=== PATIENT | female | born 1955 | race Caucasian/White ===

== ENCOUNTER 2023-06-13 16:25 | Inpatient (IN) | payer MEDICARE, SELFPAY ==
--- NOTE | ~2023-06-13 | CT_ITS ---
EXAMINATION: CT ANGIOGRAM OF THE CHEST WITH AND WITHOUT CONTRAST (CT PULMONARY ANGIOGRAM FOR PE) CLINICAL INFORMATION: Reason for Exam Covid +, hypoxic COMPARISON: None available. TECHNIQUE: Prior to contrast administration, noncontrast localization images were obtained. Subsequently, multidetector volumetric imaging was performed from the thoracic inlet to below the diaphragms following the administration of 80 mL Omnipaque 350 intravenous contrast. No contrast reaction reported Sagittal, coronal, and MIP oblique sagittal reformatted images were obtained on the CT workstation, uploaded to PACS, and reviewed. This CT examination was performed using dose optimization techniques as appropriate, variously including the following: *Automated exposure control *Adjustment of mA and/or kV according to patient size (this includes techniques or standardized protocols for targeted exams where dose is matched to indication/reason for exam; i.e. extremities or head) *Use of iterative reconstruction technique Total exam dose-length product 276 mGy-cm FINDINGS: QUALITY OF STUDY/CONTRAST BOLUS: Satisfactory. PULMONARY ARTERIES: No pulmonary emboli. THORACIC AORTA: No aneurysm. LUNG: There is mild hyperinflated of upper lobes. There is mild peribronchial thickening and patchy opacity right middle lobe anterobasal segment right lower lobe suggestive of infiltrate/atelectasis PLEURA: No pleural effusion or pneumothorax. MEDIASTINUM: The thyroid lobes are symmetrical and normal. The heart size is normal. Small shotty lymph nodes are seen in the aortic window and pretracheal space. There is no pericardial effusion. No evidence of septal bowing or right heart strain. CORONARY ARTERY CALCIFICATION: Minimal coronary artery calcifications are noted. CHEST WALL/AXILLA: No axillary or internal mammary lymphadenopathy. OSSEOUS STRUCTURES: No acute or suspicious osseous abnormality. UPPER ABDOMEN: There is a geographic hypodense areas seen in the right and left hepatic lobe likely fatty infiltration. Rest of the liver, spleen, visualized pancreas and adrenal glands are unremarkable. No reflux of contrast into the hepatic veins to suggest elevated right heart pressures. CT/CT angio chest PE protocol IMPRESSION: 1. No evidence of PE. 2. No evidence of aortic dissection. 3. Mild peribronchial thickening and patchy opacity right middle lobe and right lower lobe suggestive of infiltrate/atelectasis. 4. Geographic hypodense areas in the right and left hepatic lobe likely fatty infiltration. VTE: negative.
--- NOTE | ~2023-06-13 | XR_ITS ---
EXAMINATION: XR CHEST CLINICAL INFORMATION: SOB. COMPARISON: None available. TECHNIQUE: Frontal view of the chest was obtained. FINDINGS: The lungs are well-expanded and clear of acute process. There is a small 7 mm nodule left lung base question nipple shadow. Rest lungs are clear. The heart size and pulmonary vascularity is normal. No gross bony abnormality seen. XR/XR chest 1V IMPRESSION: No acute cardiopulmonary process seen. There is a 7 mm nodule left lung base question nipple shadow.
--- NOTE | 2023-06-13 16:37 | ED.GENADULT ---
HPI - General Adult General Chief complaint: General Medical Stated complaint: difficulty breathing, sent by PCP Time Seen by Provider: 06/13/23 16:47 Related Data Home Medications Medication Instructions Recorded Confirmed atorvastatin 10 mg tablet 10 mg PO BEDTIME 06/13/23 06/13/23 lorazepam 0.5 mg tablet 0.5 mg PO BID PRN anxiety 06/13/23 06/13/23 trazodone 50 mg tablet 50 mg PO BEDTIME 06/13/23 06/13/23 Previous Rx's Medication Instructions Recorded albuterol sulfate 90 mcg/actuation 2 puff inhalation Q4-6H PRN 06/15/23 aerosol inhaler shortness of breath or wheezing #6.7 grams benzonatate 100 mg capsule 100 mg PO TID PRN Cough #30 caps 06/15/23 dexamethasone 6 mg tablet 6 mg PO DAILY #7 tabs 06/15/23 Allergies Allergy/AdvReac Type Severity Reaction Status Date / Time Penicillins [PCN] Allergy Unknown Verified 06/13/23 16:44 [facility] Past Medical History Medical History COPD (chronic obstructive pulmonary disease) Social History Social History Household Members: None Housing: Condominium Do you presently have visiting nurse or other home services: No Patient Tobacco Use Status: Never used Tobacco Substance Use Type: Marijuana service: No Physical Exam ED Vital Signs: Vital Signs - 24 hr 06/13/23 16:38 Temperature 101.5 F H Pulse Rate 114 H Respiratory Rate 22 H Blood Pressure 130/67 Pulse Oximetry 85 L Oxygen Delivery Method Room Air BMI result Body Mass Index 37.7 Course Course Course Narrative: This is an RME: Additional HPI, ROS, PE not included below will be deferred to primary provider. This is a [id number]-female, with a hx of fibromyalgia, COPD, presenting to the ER wt complaints of body aches, weakness, decreased appetite, shortness of breath x 2 weeks. Pt was seen by PCP today and was told to come into the ER for further evaluation as her oxygen saturation was low. Lungs diminished in all lung mccann. Pt febrile at 101.4, tachycardic 112bpm, oxygen saturation 84% on room air, placed on 2L of oxygen nasal cannula, now saturating at 90% on 2L nasal cannula. No hx of CHF. Informed charge nurse to move pt back to main ER. Plan: Labs, blood cultures, lactic, cxr, tylenol PO >pt seen by Dr. Cole, see other note Medications Administered Discontinued Medications Generic Name Dose Route Start Last Admin Trade Name Freq PRN Reason Stop Dose Admin Acetaminophen 975 mg 06/13/23 16:47 06/13/23 17:23 Acetaminophen 325 Mg Tablet PO 06/13/23 16:48 975 mg ONCE ONE Administration Acetaminophen 975 mg 06/13/23 17:08 06/13/23 17:24 Acetaminophen 325 Mg Tablet PO 06/13/23 17:09 Not Given ONCE ONE Acetaminophen 650 mg 06/13/23 21:14 06/15/23 09:13 Acetaminophen 325 Mg Tablet PO 650 mg Q6H PRN Administration Pain, Mild (Pain Scale 1-3) Albuterol/Ipratropium 3 ml 06/14/23 08:00 06/15/23 11:33 Albuterol/Iprat 2.5/0.5mg 3 Ml Ampul.Neb INHALE Not Given RQ4H WHILE AWAKE MARISSA Atorvastatin Calcium 10 mg 06/14/23 21:00 06/14/23 21:18 Atorvastatin Calcium 10 Mg Tablet PO 10 mg BEDTIME MARISSA Administration Atorvastatin Calcium 10 mg 06/13/23 22:57 06/13/23 23:33 Atorvastatin Calcium 10 Mg Tablet PO 06/13/23 22:58 10 mg ONCE ONE Administration Dexamethasone Sodium Phosphate 6 mg 06/13/23 16:59 06/13/23 17:23 Dexamethasone Sod Phosphate 4 Mg/Ml Vial IVPUSH 06/13/23 17:00 6 mg ONCE ONE Administration Dexamethasone Sodium Phosphate 6 mg 06/14/23 09:00 06/15/23 09:14 Dexamethasone Sod Phosphate 4 Mg/Ml Vial IVPUSH 6 mg DAILY MARISSA Administration Enoxaparin Sodium 40 mg 06/13/23 22:00 06/14/23 21:18 Enoxaparin Sodium 40 Mg/0.4 Ml Syringe SUBCUT 40 mg Q24H MARISSA Administration Levofloxacin 500 mg in 100 mls @ 100 mls/hr 06/13/23 17:00 06/13/23 18:31 Levaquin IV 06/13/23 17:59 Infused ONCE ONE Infusion Sodium Chloride 1,500 mls @ 999 mls/hr 06/13/23 17:09 06/13/23 19:17 Ns IVCONT 06/13/23 18:39 Infused .Q1H31M ONE Infusion Iohexol 100 ml 06/13/23 18:34 06/13/23 18:34 Iohexol 350 Mg/Ml 100 Ml Infus..Btl IV 06/13/23 18:35 65 ml ONCE ONE Administration Lorazepam 0.5 mg 06/13/23 21:14 06/14/23 23:31 Lorazepam 0.5 Mg Tablet PO 0.5 mg BID PRN Administration anxiety Sodium Chloride 3 ml 06/14/23 00:00 06/15/23 09:14 0.9 % Sodium Chloride Flush 3 Ml Syringe IVFLUSH 3 ml QSHIFT [facility] Administration Trazodone HCl 50 mg 06/14/23 21:00 06/14/23 21:27 Trazodone Hcl 50 Mg Tablet PO Not Given BEDTIME [facility] Medical Decision Making Lab Data 06/15/23 06:20 06/15/23 06:20 Labs: Lab Results 06/13/23 06/13/23 Range/Units 17:17 17:20 WBC 11.9 H (4.8-10.8) X10*3/uL RBC 5.26 (4.20-5.50) X10*6/uL Hgb 15.3 (12.0-16.0) g/dl Hct 45.4 (37.0-47.0) % MCV 86.3 (80.0-98.0) fL MCH 29.1 (27.0-33.0) pg MCHC 33.7 (31.0-35.0) g/dl RDW 13.2 (11.0-16.0) % Plt Count 264 (160-400) X10*3/uL MPV 9.1 L (9.4-12.3) fL Immature Gran % (Auto) 0.7 H (0.0-0.4) % Neut % (Auto) 64.9 (45-73) % Lymph % (Auto) 15.7 L (20-40) % [place] % (Auto) 16.4 H (2-11) % Eos % (Auto) 2.0 (0-4) % Baso % (Auto) 0.3 (0-2) % Lymph # (Auto) 1.9 (1.2-4.9) X10*3/uL [place] # (Auto) 2.0 H (0.1-1.2) X10*3/uL Eos # (Auto) 0.2 (0.0-0.4) X10*3/uL Baso # (Auto) 0.0 (0.0-0.2) X10*3/uL Abs Immat Gran (auto) 0.08 H (0.00-0.03) X10*3/uL Absolute Neuts (auto) 7.7 (2.0-8.3) x10*3/uL Absolute Nucleated RBC 0.000 (0.0-0.012) X10*3/uL Nucleated RBC % (auto) 0.0 (0.0-0.2) /100WBC Smear Tech's Comments VERIFIED VBG pH 7.39 (7.32-7.43) VBG pCO2 38 mmHg VBG pO2 49 mmHg VBG HCO3 23 (22-26) mmol/L VBG O2 Saturation 80.0 % VBG Base Excess -0.9 mmol/L Sodium 138 (135-145) mmol/L Potassium 3.9 (3.3-5.1) mmol/L Chloride 102 (96-108) mmol/L Carbon Dioxide 22 (22-29) mmol/L Anion Gap 18 (12-20) BUN 12 (9-16) mg/dL Creatinine 1.23 (0.5-1.4) mg/dL Estim Creat Clear Calc 46.6 Estimated GFR 43 Random Glucose 119 H (60-115) mg/dL Lactic Acid 1.0 (0.5-2.0) mmol/L Calcium 9.5 (8.4-10.2) mg/dL Ferritin 492 H (10-250) ng/mL Total Bilirubin 0.4 (0.0-1.0) mg/dL Direct Bilirubin 0.2 (0.0-0.5) mg/dL AST 33 H (5-31) U/L ALT 22 (0-31) U/L Alkaline Phosphatase 64 (39-117) U/L Lactate Dehydrogenase 202 (122-220) U/L C-Reactive Protein 15.60 H (< or = 0.50) mg/dL B-Natriuretic Peptide 70 (<100) pg/mL Total Protein 7.4 (6.5-8.0) g/dL Albumin 4.1 (3.5-5.0) g/dL Influenza Type A (PCR) NEGATIVE (Negative) Influenza Type B (PCR) NEGATIVE (Negative) RSV RNA Qual (PCR) NEGATIVE (Negative) SARS-CoV-2 RNA (RT-PCR) POSITIVE A (Negative) Discharge Plan Discharge Clinical Impression: COVID Patient Disposition: Admitted As Inpatient Interventions: Admission Worksheet (ED) Last Done: 06/14/23 09:59 Discharge Date/Time: 06/14/23 10:00
[2023-06-13 16:38] VITALS: BP 130/67; PULSE 114; RESP 22; TEMP 38.6; O2SAT 85; BMI 37.7
--- NOTE | 2023-06-13 17:00 | ED_ITS ---
HPI - General Adult General Chief complaint: General Medical Stated complaint: difficulty breathing, sent by PCP Time Seen by Provider: 06/13/23 16:47 Source: patient and family Mode of arrival: ambulatory Limitations: no limitations History of Present Illness HPI narrative: Patient comes to the emergency room complaining of shortness of breath. Patient states that she is came in from urgent care, who advised the patient to come to the emergency room for further evaluation and treatment. Patient states that 2 weeks ago, she started having diarrhea and shortness of breath. Over last 2 weeks, patient continues having the same symptoms but the shortness of breath has gradually been getting much worse, especially with exertion. Patient denies chest pain. When patient arrived in triage, it was noted that patient's oxygen saturation was 85% on room air. Patient is not O2 dependent. Related Data Allergies Allergy/AdvReac Type Severity Reaction Status Date / Time Penicillins [PCN] Allergy Unknown Verified 06/13/23 16:44 Review of Systems 2 Review of Systems: Constitutional : No Weight loss, No Fever, No Chills, No Night Sweats, No Fatigue, No Malaise ENT/Mouth : No Hearing loss, No Ear Pain, No Nasal Congestion, No Sinus Pain, No Hoarseness, No sore throat, No Rhinorrhea, No Swallowing Difficulty Eyes: No Eye Pain, No Swelling, No Redness, No Foreign Body, No Discharge, No Vision Changes Cardiovascular : No Chest Pain, No SOB, No Dyspnea on Exertion, No Orthopnea, No Edema, No Palpitations Respiratory : Patient complaining of shortness of breath worse with exertion, cough, sputum, denies wheezing recently Gastrointestinal : No Nausea, No Vomiting, complaining of Diarrhea, No Constipation, No abdominal Pain, No Hematochezia, No Melena Genitourinary : no irregular bleeding, No Dysuria, No Urinary Frequency, No Hematuria, No Urinary Incontinence, No Urgency, No Flank Pain, No Urinary Flow Changes, No Hesitancy Musculoskeletal : No joint pain, No Myalgias, No Joint Swelling Skin : No Skin Lesions, No rash Neuro : No Weakness, No Numbness, No Paresthesias, No Loss of Consciousness, No Dizziness, No Headache Psych : No Anxiety/Panic, No Depression, No SI/HI/AH/VH, No Social Issues, Heme/Lymph: No Bruising, No Bleeding,No Lymphadenopathy Endocrine : No Polyuria, No Polydipsia, No Temperature Intolerance [facility] Past Medical History Medical History (Updated 06/13/23 @ 20:28 by Sonia Cole MD) COPD (chronic obstructive pulmonary disease) Social History Social History Smoked in Last 30 Days: No Use of substances other than those prescribed or required for medical reasons: No Advance Directives: No Advance Directives Information Provided: No Physical Exam ED Vital Signs: Vital Signs - 24 hr 06/13/23 16:38 06/13/23 17:27 06/13/23 18:15 Temperature 101.5 F H 98.9 F Pulse Rate 114 H 103 H Respiratory Rate 22 H 22 H 22 H Blood Pressure 130/67 133/70 Pulse Oximetry 85 L 93 Oxygen Delivery Method Room Air Nasal Cannula Oxygen Flow Rate 3 06/13/23 19:22 Temperature Pulse Rate 88 Respiratory Rate 20 Blood Pressure 119/60 Pulse Oximetry 91 L Oxygen Delivery Method Nasal Cannula Oxygen Flow Rate 2 BMI result Body Mass Index 37.7 Const Other: Appearance: Alert. Oriented X3. No acute distress. Eyes: Pupils equal, round and reactive to light. ENT: Pharynx normal. Neck: Normal inspection. Neck supple. No lymph nodes noted. No crepitus CVS: Normal heart rate and rhythm. Pulses normal. Normal S1 and S2 Respiratory: In tachypneic, respiratory rate approximately 30, diffuse bilateral crackles, no wheezing, good air movement Abdomen: Soft and nontender. No rigidity. No distention. Skin: Skin warm and dry. Normal skin color. Normal skin turgor. Extremities: No lower extremity edema. No Lacerations. No Rash Neuro: Oriented X 3. No motor deficit. No sensory deficit. Moving all extremities. No slurred speech. CN 2 through 12 grossly intact Psych: calm, cooperative, normal affect Course Course Course Narrative: -patient's oxygen saturation 85% on room air, tachypneic. Patient has a fever of 101.5, heart rate 114. Blood pressure stable 130/67. -all of patient's labs and imaging pending. Empirically, patient is being giving IV fluids based on ideal weight of 48 kg, patient is obese. Patient also treated with IV antibiotics given her medical comorbidities. -patient is not oxygen dependent, patient saturating 90% with 3 L. With minimal exertion such as sitting up, oxygen drops to 88% on 3 L. discussed with the patient and her that patient will be admitted once the initial workup is completed, both agree with plan. -at this time, patient is not wheezing, breathing treatment not indicated. However, given that patient is hypoxic, patient received 1 dose of 6 mg IV Decadron -patient has been symptomatic for approximately 2 weeks, at this time we will not start antiviral medications for COVID Medications Administered Discontinued Medications Generic Name Dose Route Start Last Admin Trade Name Uche PRN Reason Stop Dose Admin Acetaminophen 975 mg 06/13/23 16:47 06/13/23 17:23 Acetaminophen 325 Mg Tablet PO 06/13/23 16:48 975 mg ONCE ONE Administration Acetaminophen 975 mg 06/13/23 17:08 06/13/23 17:24 Acetaminophen 325 Mg Tablet PO 06/13/23 17:09 Not Given ONCE ONE Dexamethasone Sodium Phosphate 6 mg 06/13/23 16:59 06/13/23 17:23 Dexamethasone Sod Phosphate 4 Mg/Ml Vial IVPUSH 06/13/23 17:00 6 mg ONCE ONE Administration Levofloxacin 500 mg in 100 mls @ 100 mls/hr 06/13/23 17:00 06/13/23 18:31 Levaquin IV 06/13/23 17:59 Infused ONCE ONE Infusion Sodium Chloride 1,500 mls @ 999 mls/hr 06/13/23 17:09 06/13/23 19:17 Ns IVCONT 06/13/23 18:39 Infused .Q1H31M ONE Infusion Iohexol 100 ml 06/13/23 18:34 06/13/23 18:34 Iohexol 350 Mg/Ml 100 Ml Infus..Btl IV 06/13/23 18:35 65 ml ONCE ONE Administration Medical Decision Making Medical Decision Making [facility] Narrative: -my interpretation of chest x-ray: No pneumonia -my interpretation of CT scan for pulmonary embolism, no obvious PE -my interpretation of labs: White blood cell count 11.9, likely reactive leukocytosis, chemistry unremarkable, BNP 70 -patient remained saturating in the low 90s at 3 L of oxygen. -I discussed the patient with Dr. Fuentes, patient being admitted Differential Diagnosis Differential Diagnoses: The differential diagnosis associated with the presentation includes (COVID, pneumonia, influenza) Admission/Observation Consideration of admission/observation: Escalation of care including admission/observation considered Consult Healthcare Provider Management of the patient was discussed with: Hospitalist Lab Data [facility] Lab Attestation statement: I reviewed the patient's lab results. 06/13/23 17:17 06/13/23 17:17 Labs: Lab Results 06/13/23 06/13/23 Range/Units 17:17 17:20 WBC 11.9 H (4.8-10.8) X10*3/uL RBC 5.26 (4.20-5.50) X10*6/uL Hgb 15.3 (12.0-16.0) g/dl Hct 45.4 (37.0-47.0) % MCV 86.3 (80.0-98.0) fL MCH 29.1 (27.0-33.0) pg MCHC 33.7 (31.0-35.0) g/dl RDW 13.2 (11.0-16.0) % Plt Count 264 (160-400) X10*3/uL MPV 9.1 L (9.4-12.3) fL Immature Gran % (Auto) 0.7 H (0.0-0.4) % Neut % (Auto) 64.9 (45-73) % Lymph % (Auto) 15.7 L (20-40) % [place] % (Auto) 16.4 H (2-11) % Eos % (Auto) 2.0 (0-4) % Baso % (Auto) 0.3 (0-2) % Lymph # (Auto) 1.9 (1.2-4.9) X10*3/uL [place] # (Auto) 2.0 H (0.1-1.2) X10*3/uL Eos # (Auto) 0.2 (0.0-0.4) X10*3/uL Baso # (Auto) 0.0 (0.0-0.2) X10*3/uL Abs Immat Gran (auto) 0.08 H (0.00-0.03) X10*3/uL Absolute Neuts (auto) 7.7 (2.0-8.3) x10*3/uL Absolute Nucleated RBC 0.000 (0.0-0.012) X10*3/uL Nucleated RBC % (auto) 0.0 (0.0-0.2) /100WBC Smear Tech's Comments VERIFIED VBG pH 7.39 (7.32-7.43) VBG pCO2 38 mmHg VBG pO2 49 mmHg VBG HCO3 23 (22-26) mmol/L VBG O2 Saturation 80.0 % VBG Base Excess -0.9 mmol/L Sodium 138 (135-145) mmol/L Potassium 3.9 (3.3-5.1) mmol/L Chloride 102 (96-108) mmol/L Carbon Dioxide 22 (22-29) mmol/L Anion Gap 18 (12-20) BUN 12 (9-16) mg/dL Creatinine 1.23 (0.5-1.4) mg/dL Estim Creat Clear Calc 46.6 Estimated GFR 43 Random Glucose 119 H (60-115) mg/dL Lactic Acid 1.0 (0.5-2.0) mmol/L Calcium 9.5 (8.4-10.2) mg/dL Total Bilirubin 0.4 (0.0-1.0) mg/dL Direct Bilirubin 0.2 (0.0-0.5) mg/dL AST 33 H (5-31) U/L ALT 22 (0-31) U/L Alkaline Phosphatase 64 (39-117) U/L B-Natriuretic Peptide 70 (<100) pg/mL Total Protein 7.4 (6.5-8.0) g/dL Albumin 4.1 (3.5-5.0) g/dL Influenza Type A (PCR) NEGATIVE (Negative) Influenza Type B (PCR) NEGATIVE (Negative) RSV RNA Qual (PCR) NEGATIVE (Negative) SARS-CoV-2 RNA (RT-PCR) POSITIVE A (Negative) Independent Interpretation I performed an independent interpretation of an: Plain X-Ray and CT Scan Radiology Impression Discussion of test interpretation with radiology: I have reviewed the radiologist's reading. Radiologist Impression: FINDINGS: QUALITY OF STUDY/CONTRAST BOLUS: Satisfactory. PULMONARY ARTERIES: No pulmonary emboli. THORACIC AORTA: No aneurysm. LUNG: There is mild hyperinflated of upper lobes. There is mild peribronchial thickening and patchy opacity right middle lobe anterobasal segment right lower lobe suggestive of infiltrate/atelectasis PLEURA: No pleural effusion or pneumothorax. MEDIASTINUM: The thyroid lobes are symmetrical and normal. The heart size is normal. Small shotty lymph nodes are seen in the aortic window and pretracheal space. There is no pericardial effusion. No evidence of septal bowing or right heart strain. CORONARY ARTERY CALCIFICATION: Minimal coronary artery calcifications are noted. CHEST WALL/AXILLA: No axillary or internal mammary lymphadenopathy. OSSEOUS STRUCTURES: No acute or suspicious osseous abnormality. UPPER ABDOMEN: There is a geographic hypodense areas seen in the right and left hepatic lobe likely fatty infiltration. Rest of the liver, spleen, visualized pancreas and adrenal glands are unremarkable. No reflux of contrast into the hepatic veins to suggest elevated right heart pressures. CT/CT angio chest PE protocol IMPRESSION: 1. No evidence of PE. 2. No evidence of aortic dissection. 3. Mild peribronchial thickening and patchy opacity right middle lobe and right lower lobe suggestive of infiltrate/atelectasis. 4. Geographic hypodense areas in the right and left hepatic lobe likely fatty infiltration. VTE: negative. FINDINGS: The lungs are well-expanded and clear of acute process. There is a small 7 mm nodule left lung base question nipple shadow. Rest lungs are clear. The heart size and pulmonary vascularity is normal. No gross bony abnormality seen. XR/XR chest 1V IMPRESSION: No acute cardiopulmonary process seen. There is a 7 mm nodule left lung base question nipple shadow. Independent Historian Clinical information obtained from an independent historian. History obtained from or confirmed by: Other (Brother) Critical Care Time Critical Care Time Critical Care Time: Yes Total Critical Care Time: 75 Attestation: I have personally provided critical care time. Time includes review of lab data, radiology results, discussion with consultants, and monitoring for potential decompensation. Intervention performed as documented. Discharge Plan Discharge Clinical Impression: COVID Patient Disposition: Admitted As Inpatient
[2023-06-13] MEDS: levoFLOXacin/D5W 500 MG/100 ML PIGGYBACK 100 MG IV (17:23)
[2023-06-13] MEDS: dexAMETHasone sod phosphate 4 MG/ML VIAL 6 MG IVPUSH (17:23)
[2023-06-13] MEDS: Acetaminophen 325 MG TABLET 975 MG PO (17:23)
[2023-06-13 17:26] LABS: Venous Blood Gas Refer to POC result
[2023-06-13 17:27] VITALS: BP 133/70; PULSE 103; RESP 22; TEMP 37.2; O2SAT 93
[2023-06-13 17:27] LABS: VBG Base Excess -0.9 mmol/L; VBG HCO3 23 mmol/L (22-26); VBG pCO2 38 mmHg; VBG pH 7.39 (7.32-7.43); VBG pO2 49 mmHg
[2023-06-13 17:27] LABS: Basophils Percent Auto 0.3 % (0-2); Eosinophils Absolute Auto 0.2 X10*3/uL (0.0-0.4); Hematocrit 45.4 % (37.0-47.0); Hemoglobin 15.3 g/dl (12.0-16.0); Imm Gran Abs Auto 0.08 X10*3/uL (0.00-0.03); Imm Gran Pct Auto 0.7 % (0.0-0.4); Lymphocytes Absolute Auto 1.9 X10*3/uL (1.2-4.9); Lymphocytes Percent Auto 15.7 % (20-40); MANUAL DIFF FLAG SCAN; Mean Corpuscular HGB Conc 33.7 g/dl (31.0-35.0); Mean Corpuscular Hemoglobin 29.1 pg (27.0-33.0); Mean Corpuscular Volume 86.3 fL (80.0-98.0); Mean Platelet Volume 9.1 fL (9.4-12.3); Monocytes Percent Auto 16.4 % (2-11); Neutrophils Absolute Auto 7.7 x10*3/uL (2.0-8.3); Neutrophils Percent Auto 64.9 % (45-73); Platelet Count 264 X10*3/uL (160-400); Red Blood Count 5.26 X10*6/uL (4.20-5.50); Red Cell Distribution Width 13.2 % (11.0-16.0); SCAN SMEAR FLAG 1; White Blood Count 11.9 X10*3/uL (4.8-10.8)
[2023-06-13] MEDS: 0.9 % Sodium Chloride 1,500 ML 999 ML IVCONT (17:40)
[2023-06-13 17:41] LABS: Alanine Aminotransferase 22 U/L (0-31); Albumin Level 4.1 g/dL (3.5-5.0); Alkaline Phosphatase 64 U/L (39-117); Anion Gap 18 (12-20); Aspartate Amino Transferase 33 U/L (5-31); Bilirubin Direct 0.2 mg/dL (0.0-0.5); Bilirubin Total 0.4 mg/dL (0.0-1.0); Blood Urea Nitrogen 12 mg/dL (9-16); Calcium 9.5 mg/dL (8.4-10.2); Carbon Dioxide 22 mmol/L (22-29); Chloride 102 mmol/L (96-108); Creatinine Clr Calc Pharmacy 46.6; Estimated Glomerular Filt Rate 43; Glucose Random 119 mg/dL (60-115); Potassium 3.9 mmol/L (3.3-5.1); Sodium 138 mmol/L (135-145); Total Protein 7.4 g/dL (6.5-8.0)
[2023-06-13 17:46] LABS: B Type Natriuretic Peptide 70 pg/mL (<100)
[2023-06-13 18:01] LABS: SLIDE REVIEW VERIFIED
[2023-06-13 18:14] LABS: Influenza A PCR NEGATIVE (Negative); Influenza B PCR NEGATIVE (Negative); Resp Syncy Virus RNA Qual PCR NEGATIVE (Negative); SARS COV2 PCR INHOUSE POSITIVE (Negative)
--- NOTE | 2023-06-13 18:14 | PC.NURSE ---
20g IV placed in LAC, medications administered per NOV. Pt is resting on stretcher, respirations even and unlabored, skin pink warm and moist. Pt repositioned in bed for comfort. No apparent distress at this time. Pt aware of plan for admission
[2023-06-13 18:15] VITALS: RESP 22
[2023-06-13] MEDS: iohexoL 350 MG/ML 100 ML INFUS..BTL IV (18:34)
[2023-06-13 19:22] VITALS: BP 119/60; PULSE 88; RESP 20; O2SAT 91
--- NOTE | 2023-06-13 20:18 | P.HPHOSP_ITS ---
History of Present Illness Date of Service: 06/13/23 Chief Complaint: SOB A 67 years old lady with PMH of COPD who presents to the hospital reporting worsening shortness of breath over the last 2 weeks with associated weakness. she states that she developed diarrhea almost 2 weeks ago that did not improve much with decrease PO intake. over the last weekend complicated with SOB and cough associated with chest tightness and occasional cough with no sputum.Denies any chest pain, abd pain, nausea, vomiting, rash or urinary symptoms. In ED found to be febrile and hypoxic. tested positive for Covid. Admitted for further eval and tretment. Review of Systems 2 Review of Systems: reporting fever, chills and weakness No chest pain, palpitation having shortness of breath and coughing No abdominal pain, nausea or vomiting No urinary symptoms No any rash or wounds PMFSH Medical History COPD (chronic obstructive pulmonary disease) Social History Smoked in Last 30 Days: No Use of substances other than those prescribed or required for medical reasons: No Advance Directives: No Advance Directives Information Provided: No Meds Allergies Allergy/AdvReac Type Severity Reaction Status Date / Time Penicillins [PCN] Allergy Unknown Verified 06/13/23 16:44 Home Medications Medication Instructions Recorded Confirmed Last Taken Type atorvastatin 10 mg tablet 10 mg PO BEDTIME 06/13/23 06/13/23 06/12/23 History lorazepam 0.5 mg tablet 0.5 mg PO BID PRN anxiety 06/13/23 06/13/23 Unknown History trazodone 50 mg tablet 50 mg PO BEDTIME 06/13/23 06/13/23 06/12/23 History Physical Exam 2 Vital Signs and Narrative: Vital Signs: Last Vital Signs Temp 98.9 F 06/13/23 17:27 Pulse 88 06/13/23 19:22 Resp 20 06/13/23 19:22 BP 119/60 06/13/23 19:22 Pulse Ox 91 L 06/13/23 19:22 O2 Del Method Nasal Cannula 06/13/23 19:22 O2 Flow Rate 2 06/13/23 19:22 BMI result Body Mass Index 37.7 Const: Other: Constitutional : Awake, interactive, not in distress Neck : Normal inspection, Supple Cardiovascular : RRR, no JVP, no lower extremity edema Respiratory : decreased ilateral air entry, no crackles, scattered expiratory wheezes Gastrointestinal: soft, lax, Normal bowel sounds, Non tender Skin : Warm, Dry Neurological : Alert & oriented x3, No focal deficit Results Labs 06/13/23 17:17 06/13/23 17:17 Labs: Laboratory Results - last 24 hr 06/13/23 06/13/23 17:17 17:20 MCV 86.3 MCH 29.1 MCHC 33.7 RDW 13.2 Plt Count 264 MPV 9.1 L Immature Gran % (Auto) 0.7 H Neut % (Auto) 64.9 Lymph % (Auto) 15.7 L [place] % (Auto) 16.4 H Eos % (Auto) 2.0 Baso % (Auto) 0.3 Lymph # (Auto) 1.9 [place] # (Auto) 2.0 H Eos # (Auto) 0.2 Baso # (Auto) 0.0 Abs Immat Gran (auto) 0.08 H Absolute Neuts (auto) 7.7 Absolute Nucleated RBC 0.000 Nucleated RBC % (auto) 0.0 Smear Tech's Comments VERIFIED VBG pH 7.39 VBG pCO2 38 VBG pO2 49 VBG HCO3 23 VBG O2 Saturation 80.0 VBG Base Excess -0.9 Anion Gap 18 Estim Creat Clear Calc 46.6 Estimated GFR 43 Random Glucose 119 H Lactic Acid 1.0 Calcium 9.5 Total Bilirubin 0.4 Direct Bilirubin 0.2 AST 33 H ALT 22 Alkaline Phosphatase 64 B-Natriuretic Peptide 70 Total Protein 7.4 Albumin 4.1 Influenza Type A (PCR) NEGATIVE Influenza Type B (PCR) NEGATIVE RSV RNA Qual (PCR) NEGATIVE SARS-CoV-2 RNA (RT-PCR) POSITIVE A Imaging Radiologist's Impressions: Impressions Chest X-Ray 06/13/23 17:09 IMPRESSION: No acute cardiopulmonary process seen. There is a 7 mm nodule left lung base question nipple shadow. Chest CTA 06/13/23 18:45 IMPRESSION: 1. No evidence of PE. 2. No evidence of aortic dissection. 3. Mild peribronchial thickening and patchy opacity right middle lobe and right lower lobe suggestive of infiltrate/atelectasis. 4. Geographic hypodense areas in the right and left hepatic lobe likely fatty infiltration. VTE: negative. Assessment and Plan (1) COVID: Status: Acute (2) Acute respiratory failure with hypoxia: Status: Acute Plan A 67 years old lady with PMH of COPD who presents to the hospital reporting worsening shortness of breath over the last 2 weeks with associated weakness. Acute hypoxic resp failure 2/2 Covid 19 infection Start IV Dexamethasone Duonebs and PRN Albuterol Wean O2 down as tolerated Encourage PO intake Obesity, mild advised weight loss DVT PPx Lovenox The patient will need close monitoring for at least 2 overnights for hypoxia 2/2 Covid infection Time Spent With Patient Time: Total time managing care of this patient today ____ minutes. Quality Stroke Does the patient have a stroke diagnosis?: No VTE Prior VTE?: No VTE Risk Level:: Medical - moderate - high VTE Device Contraindication: Treatment Not Indicated VTE Drug Contraindication: N/A - Med Ordered
[2023-06-13 21:14] VITALS: BP 120/72; PULSE 81; RESP 20; TEMP 37.2; O2SAT 91
[2023-06-13 21:51] LABS: Lactate Dehydrogenase 202 U/L (122-220)
[2023-06-13 22:08] LABS: Ferritin 492 ng/mL (10-250)
[2023-06-13] MEDS: Atorvastatin Calcium 10 MG TABLET PO (23:33)
[2023-06-13] MEDS: Enoxaparin Sodium 40 MG/0.4 ML SYRINGE SUBCUT (23:33)
[2023-06-13 23:34] VITALS: BP 115/83; PULSE 72; RESP 16; O2SAT 94
--- NOTE | 2023-06-13 23:35 | PC.NURSE ---
pt requesting food; sandwich/juice/water provided. upon pain assessment pt reporting 6/10 neck pain; prn given per pt request. vss. sats 94% 3L NC. pt denies feeling sob at this time. call to environmental services for hospital bed as pt states discomfort with ed stretcher.
[2023-06-13] MEDS: Acetaminophen 325 MG TABLET 650 MG PO (23:38)
[2023-06-14] MEDS: 0.9 % Sodium Chloride Flush 3 ML SYRINGE IVFLUSH ×4 (00:37→21:19)
[2023-06-14 00:49] VITALS: BP 122/63; PULSE 77; RESP 19; O2SAT 95
--- NOTE | 2023-06-14 00:51 | PC.NURSE ---
switched pt to hospital bed.
[2023-06-14 04:21] LABS: Hematocrit 43.4 % (37.0-47.0); Hemoglobin 14.5 g/dl (12.0-16.0); Mean Corpuscular HGB Conc 33.4 g/dl (31.0-35.0); Mean Corpuscular Hemoglobin 29.8 pg (27.0-33.0); Mean Corpuscular Volume 89.1 fL (80.0-98.0); Mean Platelet Volume 9.4 fL (9.4-12.3); Platelet Count 245 X10*3/uL (160-400); Red Blood Count 4.87 X10*6/uL (4.20-5.50); Red Cell Distribution Width 13.2 % (11.0-16.0); White Blood Count 12.5 X10*3/uL (4.8-10.8)
[2023-06-14 04:35] LABS: Alanine Aminotransferase 20 U/L (0-31); Albumin Level 3.7 g/dL (3.5-5.0); Alkaline Phosphatase 56 U/L (39-117); Anion Gap 14 (12-20); Aspartate Amino Transferase 33 U/L (5-31); Bilirubin Total 0.3 mg/dL (0.0-1.0); Blood Urea Nitrogen 12 mg/dL (9-16); Calcium 9.3 mg/dL (8.4-10.2); Carbon Dioxide 24 mmol/L (22-29); Chloride 106 mmol/L (96-108); Creatinine Clr Calc Pharmacy 63.8; Estimated Glomerular Filt Rate > 60; Glucose Random 136 mg/dL (60-115); Sodium 140 mmol/L (135-145); Total Protein 6.8 g/dL (6.5-8.0)
[2023-06-14 06:13] VITALS: BP 122/73; PULSE 67; RESP 14; O2SAT 95
[2023-06-14] MEDS: dexAMETHasone sod phosphate 4 MG/ML VIAL 6 MG IVPUSH (08:47)
--- NOTE | 2023-06-14 09:48 | HO.PM.IMPN ---
Subjective Subjective Date of Service: 06/14/23 Interval History: somewhat better this morning, still sob and coughing Physical Exam Vital Signs: Vital Signs: Last Vital Signs Temp 99.0 F 06/13/23 21:14 Pulse 67 06/14/23 06:13 Resp 14 06/14/23 06:13 BP 122/73 06/14/23 06:13 Pulse Ox 95 06/14/23 06:13 O2 Del Method Nasal Cannula 06/14/23 06:13 O2 Flow Rate 3 06/14/23 06:13 BMI result Body Mass Index 37.7 decreased air entry bilateral with some exp wheezes no acute distress, no accessory muscles Objective Data Active Medications Acetaminophen (Acetaminophen 325 Mg Tablet) 650 mg PO Q6H PRN PRN Reason: Pain, Mild (Pain Scale 1-3) Last Admin: 06/13/23 23:38 Dose: 650 mg Documented By: SHAR Albuterol Sulfate (Albuterol Sulfate (0.083%) 2.5 Mg/3 Ml Vial.Neb) 2.5 mg INHALE Q4H PRN PRN Reason: Wheezing Albuterol/Ipratropium (Albuterol/Iprat 2.5/0.5mg 3 Ml Ampul.Neb) 3 ml INHALE RQ4H WHILE AWAKE [facility] Last Admin: 06/14/23 07:57 Dose: Not Given Documented By: AARON Non-Admin Reason: Patient Asleep Atorvastatin Calcium (Atorvastatin Calcium 10 Mg Tablet) 10 mg PO BEDTIME [facility] Benzonatate (Benzonatate 100 Mg Capsule) 100 mg PO TID PRN PRN Reason: Cough Dexamethasone Sodium Phosphate (Dexamethasone Sod Phosphate 4 Mg/Ml Vial) 6 mg IVPUSH DAILY [facility] Last Admin: 06/14/23 08:47 Dose: 6 mg Documented By: ARTURO Enoxaparin Sodium (Enoxaparin Sodium 40 Mg/0.4 Ml Syringe) 40 mg SUBCUT Q24H [facility] Last Admin: 06/13/23 23:33 Dose: 40 mg Documented By: SHAR Lorazepam (Lorazepam 0.5 Mg Tablet) 0.5 mg PO BID PRN PRN Reason: anxiety Ondansetron HCl (Ondansetron Hcl 4 Mg/2 Ml Vial) 4 mg IVPUSH Q8H PRN PRN Reason: Nausea and Vomiting Sodium Chloride (0.9 % Sodium Chloride Flush 3 Ml Syringe) 3 ml IVFLUSH QSHIFT [facility] Last Admin: 06/14/23 08:47 Dose: 3 ml Documented By: ARTURO Trazodone HCl (Trazodone Hcl 50 Mg Tablet) 50 mg PO BEDTIME [facility] Trazodone HCl (Trazodone Hcl 50 Mg Tablet) 50 mg PO BEDTIME PRN PRN Reason: Insomnia Labs 06/14/23 04:13 06/14/23 04:13 Labs: Laboratory Results - last 24 hr 06/13/23 06/13/23 06/14/23 17:17 17:20 04:13 MCV 86.3 89.1 MCH 29.1 29.8 MCHC 33.7 33.4 RDW 13.2 13.2 Plt Count 264 245 MPV 9.1 L 9.4 Immature Gran % (Auto) 0.7 H Neut % (Auto) 64.9 Lymph % (Auto) 15.[address] [place] % (Auto) 16.4 H Eos % (Auto) 2.0 Baso % (Auto) 0.3 Lymph # (Auto) 1.9 [place] # (Auto) 2.0 H Eos # (Auto) 0.2 Baso # (Auto) 0.0 Abs Immat Gran (auto) 0.08 H Absolute Neuts (auto) 7.7 Absolute Nucleated RBC 0.000 0.000 Nucleated RBC % (auto) 0.0 0.0 Smear Tech's Comments VERIFIED VBG pH 7.39 VBG pCO2 38 VBG pO2 49 VBG HCO3 23 VBG O2 Saturation 80.0 VBG Base Excess -0.9 Anion Gap 18 14 Estim Creat Clear Calc 46.6 63.8 Estimated GFR 43 > 60 Random Glucose 119 H 136 H Lactic Acid 1.0 Calcium 9.5 9.3 Ferritin 492 H Total Bilirubin 0.4 0.3 Direct Bilirubin 0.2 AST 33 H 33 H ALT 22 20 Alkaline Phosphatase 64 56 Lactate Dehydrogenase 202 C-Reactive Protein 15.60 H B-Natriuretic Peptide 70 Total Protein 7.4 6.8 Albumin 4.1 3.7 Influenza Type A (PCR) NEGATIVE Influenza Type B (PCR) NEGATIVE RSV RNA Qual (PCR) NEGATIVE SARS-CoV-2 RNA (RT-PCR) POSITIVE A Assessment and Plan (1) Acute respiratory failure with hypoxia: Status: Acute Plan 67F PMH COPD, hld, anxiety, obesity, presented with sob Acute hypoxic respiratory failure secondary to COPD with acute decompensation due to COVID IV Decadron, DuoNebs, wean O2 as tolerated Hyperlipidemia Statin Anxiety Ativan Obesity Weight loss recommended DVT prophylaxis Lovenox Full code Reason for continued hospitalization: Patient still short of breath and hypoxic Time Spent With Patient Time: Total time managing care of this patient today ____ minutes. Quality Stroke Does the patient have a stroke diagnosis?: No VTE Prior VTE?: No VTE Risk Level:: Medical - moderate - high VTE Device Contraindication: Treatment Not Indicated VTE Drug Contraindication: N/A - Med Ordered
[2023-06-14 11:03] VITALS: BP 134/79; PULSE 70; RESP 20; TEMP 36.2; O2SAT 94
--- NOTE | 2023-06-14 11:47 | MHC.CM.PN ---
IMM DELIVERED VERBALLY, PATIENT IS COVID +, WILL MAIL COPY TO HOME PATIENT REPORTS LIVING AT HOME ALONE, NO SERVICES, AMBULATES INDEPENDENTLY, NO EQUIPMENT IN THE HOME PCP: EDGAR MORELOS AT [facility] HCP IS BROTHER, COPY REQUESTED DCP: RETURN HOME, NO SERVICES, BROTHER TO TRANSPORT
[2023-06-14 12:32] VITALS: PULSE 70; RESP 18; O2SAT 92
[2023-06-14] MEDS: Albuterol/Iprat 2.5/0.5MG 3 ML AMPUL.NEB INHALE (12:32)
[2023-06-14 15:10] VITALS: BP 124/66; PULSE 66; RESP 20; TEMP 36.4; O2SAT 95
[2023-06-14 19:08] VITALS: BP 123/66; PULSE 69; RESP 20; TEMP 36.2; O2SAT 97
[2023-06-14 19:38] LABS: CDiff Gene PCR NEGATIVE (Negative)
[2023-06-14] MEDS: Enoxaparin Sodium 40 MG/0.4 ML SYRINGE SUBCUT (21:18)
[2023-06-14] MEDS: Atorvastatin Calcium 10 MG TABLET PO (21:18)
[2023-06-14] MEDS: LORazepam 0.5 MG TABLET PO (23:31)
[2023-06-14] MEDS: Acetaminophen 325 MG TABLET 650 MG PO (23:32)
[2023-06-15] VITALS: BP 123/71; PULSE 54; RESP 20; TEMP 36.3; O2SAT 95
[2023-06-15 06:41] LABS: Anion Gap 10 (12-20); Blood Urea Nitrogen 14 mg/dL (9-16); Calcium 9.3 mg/dL (8.4-10.2); Carbon Dioxide 25 mmol/L (22-29); Chloride 110 mmol/L (96-108); Creatinine Clr Calc Pharmacy 76.5; Estimated Glomerular Filt Rate > 60; Glucose Fasting 100 mg/dL (60-99); Potassium 3.9 mmol/L (3.3-5.1); Sodium 141 mmol/L (135-145)
[2023-06-15 06:57] LABS: Hematocrit 40.5 % (37.0-47.0); Hemoglobin 13.7 g/dl (12.0-16.0); Mean Corpuscular HGB Conc 33.8 g/dl (31.0-35.0); Mean Corpuscular Hemoglobin 29.4 pg (27.0-33.0); Mean Corpuscular Volume 86.9 fL (80.0-98.0); Mean Platelet Volume 9.9 fL (9.4-12.3); Platelet Count 293 X10*3/uL (160-400); Red Blood Count 4.66 X10*6/uL (4.20-5.50); Red Cell Distribution Width 13.4 % (11.0-16.0); White Blood Count 12.2 X10*3/uL (4.8-10.8)
[2023-06-15 07:48] VITALS: BP 151/78; PULSE 66; RESP 20; TEMP 37.2; O2SAT 95
[2023-06-15] MEDS: Acetaminophen 325 MG TABLET 650 MG PO (09:13)
[2023-06-15] MEDS: 0.9 % Sodium Chloride Flush 3 ML SYRINGE IVFLUSH (09:14)
[2023-06-15] MEDS: dexAMETHasone sod phosphate 4 MG/ML VIAL 6 MG IVPUSH (09:14)
[2023-06-15 09:15] VITALS: PULSE 80; RESP 20; O2SAT 94
--- NOTE | 2023-06-15 11:14 | PM.DS ---
DS: Providers Provider Date of Service: 06/15/23 Date of admission: 06/13/23 21:14 Primary care physician: Shanthi Baum MD DS: Diagnosis Discharge Diagnosis (1) Acute respiratory failure with hypoxia: Status: Acute (2) COVID: Status: Acute (3) COPD exacerbation: Status: Acute DS: Summary Hospital Course Hospital Course: Admission note HPI A 67 years old lady with PMH of COPD who presents to the hospital reporting worsening shortness of breath over the last 2 weeks with associated weakness. she states that she developed diarrhea almost 2 weeks ago that did not improve much with decrease PO intake. over the last weekend complicated with SOB and cough associated with chest tightness and occasional cough with no sputum.Denies any chest pain, abd pain, nausea, vomiting, rash or urinary symptoms. In ED found to be febrile and hypoxic. tested positive for Covid. Admitted for further eval and tretment. Hospital course Treated for hypoxic respiratory failure from Covid19 infection and COPD exacerbation with steroids, nebulizers and Oxygen with good response. Weaned down to room air. Improved oral intake. As needed Albuterol inhalor Continue Dexamethasone as prescribed Tessalon as needed for cough Time Spent with Patient Time attestation: Total time managing care of this patient today ____ minutes. Discharge coordination time: Greater than 30 minutes Quality: Safe Use of Opioids Does Pt have an Active Cancer Diagnosis on the Problem List?: No Quality: Stroke Does the patient have a stroke diagnosis?: No Physical Exam Vital Signs: Vital Signs: Last Vital Signs Temp 99 F 06/15/23 07:48 Pulse 80 06/15/23 09:15 Resp 20 06/15/23 09:15 BP 151/78 H 06/15/23 07:48 Pulse Ox 94 06/15/23 09:15 O2 Del Method Room Air 06/15/23 09:15 O2 Flow Rate 2.5 06/15/23 07:48 BMI result Body Mass Index 37.7 Const: Other: Constitutional : Awake, interactive, not in distress Neck : Normal inspection, Supple Cardiovascular : RRR, no JVP, no lower extremity edema Respiratory : good bilateral air entry, no crackles, scattered wheezes Gastrointestinal: soft, lax, Normal bowel sounds, Non tender Skin : Warm, Dry Neurological : Alert & oriented x3, No focal deficit DS: Data Data Completed and Pending Labs on day of discharge: Laboratory Results - last 24 hr 06/14/23 06/15/23 16:10 06:20 WBC 12.2 H RBC 4.66 Hgb 13.7 Hct 40.5 MCV 86.9 MCH 29.4 MCHC 33.8 RDW 13.4 Plt Count 293 MPV 9.9 Absolute Nucleated RBC 0.000 Nucleated RBC % (auto) 0.0 Sodium 141 Potassium 3.9 Chloride 110 H Carbon Dioxide 25 Anion Gap 10 L BUN 14 Creatinine 0.75 Estim Creat Clear Calc 76.5 Estimated GFR > 60 Fasting Glucose 100 H Calcium 9.3 C. difficile Tox B Gene NEGATIVE Preliminary micro results at discharge 06/13/23 17:21 Blood Culture - Preliminary Blood - Venous No growth after 24 hours. 06/13/23 17:17 Blood Culture - Preliminary Blood - Venous No growth after 24 hours. Imaging Chest x-ray: Radiologist's impression: ITS Impressions Chest X-Ray 06/13/23 17:09 IMPRESSION: No acute cardiopulmonary process seen. There is a 7 mm nodule left lung base question nipple shadow. Chest CTA 06/13/23 18:45 IMPRESSION: 1. No evidence of PE. 2. No evidence of aortic dissection. 3. Mild peribronchial thickening and patchy opacity right middle lobe and right lower lobe suggestive of infiltrate/atelectasis. 4. Geographic hypodense areas in the right and left hepatic lobe likely fatty infiltration. VTE: negative. Discharge Plan Discharge Anticipated Discharge Date/Time: 06/15/23 11:08 Patient Disposition: Home, Self-Care Discharge Diagnosis: Covid19 infection Referrals: Shanthi Baum MD [Primary Care Provider] - 1 Week Discharge Medications: New benzonatate 100 mg Capsule 100 mg PO TID PRN (Reason: Cough) Qty: 30 0RF dexamethasone 6 mg tablet 6 mg PO DAILY Qty: 7 0RF albuterol sulfate 90 mcg/actuation HFA aerosol inhaler 2 puff inhalation Q4-6H PRN (Reason: shortness of breath or wheezing) Qty: 6.7 1RF Continued trazodone 50 mg tablet 50 mg PO BEDTIME atorvastatin 10 mg tablet 10 mg PO BEDTIME lorazepam 0.5 mg tablet 0.5 mg PO BID PRN (Reason: anxiety) Discharge Orders: Discharge Order (Routine); Ordered 06/15/23 Ordered By: Ese Fuentes Diet: Advance to usual diet Activity on Discharge: As tolerated Stand Alone Forms: Patient Portal Discharge page Care Plan Goals: Read below Health Concerns: Read below Plan of Treatment: Read below Assessment: You were admitted for COVID infection. responded well to steroids and nebulizers. Weaned off the Oxygen and maintained O2 in 90s on room air. As needed Albuterol inhalor Continue Dexamethasone as prescribed Tessalon as needed for cough
--- NOTE | 2023-06-15 11:29 | MHC.CM.PN ---
Pt has been medically cleared for dc, her brother will pick her up, she does not have services at home, she is independent.
== END 2023-06-15 12:20 | disposition home or self-care (01) | DRG 177 ==
LOC: HO.ED 20:28 → HO.EDOVER 21:19 → HO.IMC 22:41 → HO.EDOVER 22:53 → HO.IMC 06-14 09:07
PROVIDERS: Internal Medicine; Physician Assistant Medical; Admitting Provider Student in an Organized Health Care Education/Training Program; Emergency Provider Emergency Medicine; PCP Internal Medicine; Visit Provider Student in an Organized Health Care Education/Training Program
DX: U07.1 COVID-19 (principal); J96.01 Acute respiratory failure with hypoxia; J44.1 Chronic obstructive pulmonary disease with (acute) exacerbation; E66.9 Obesity, unspecified; F41.9 Anxiety disorder, unspecified; Z68.37 Body mass index [BMI] 37.0-37.9, adult; M79.7 Fibromyalgia; Z71.3 Dietary counseling and surveillance; Z88.0 Allergy status to penicillin; Z79.899 Other long term (current) drug therapy
CPT/HCPCS: 0241U; 36415; 71045; 71275; 80048; 80053; 80076; 82728; 82803; 83605; 83615; 83880; 85025; 85027; 86140; 87040; 87493; 99285; J1100; J1650; J1956; Q9967

== ENCOUNTER → 2023-06-13 21:14 | Outpatient (BNV) | payer MEDICARE, SELFPAY | PROVIDERS: Admitting Provider Student in an Organized Health Care Education/Training Program; Emergency Provider Emergency Medicine; PCP Internal Medicine; Visit Provider Student in an Organized Health Care Education/Training Program | DX: J96.01 Acute respiratory failure with hypoxia (principal); U07.1 COVID-19; J44.1 Chronic obstructive pulmonary disease with (acute) exacerbation | CPT/HCPCS: 99223; 99233; 99239 ==